=== PATIENT | male | born 1995 | race Caucasian/White ===

== ENCOUNTER 2019-07-22 09:24 | Emergency (ER) | payer OTHER ==
[~2019-07-22] VITALS: Ht 177.8 cm; Wt 76.2 kg
== END 2019-07-22 10:44 | disposition home or self-care (01) ==
LOC: ED 09:24
DX: S00.83XA Contusion of other part of head, initial encounter (principal); Y04.0XXA Assault by unarmed brawl or fight, initial encounter; Y93.89 Activity, other specified; Y92.69 Other specified industrial and construction area as the place of occurrence of the external cause; Y99.9 Unspecified external cause status